=== PATIENT | female | born 1965 | race Caucasian/White ===

== ENCOUNTER 2016-12-05 07:40 | Inpatient (IN) | payer OTHER ==
[2016-11-29 13:08] VITALS: BMI 27.9
--- NOTE | 2016-12-02 10:00 | HP ---
Admitting History and Physical - Primary Care Physician PCP: Sean Valentine - Admission Chief Complaint: Right Occult breast cancer S/P neoadjuvant chemotherapy History of Present Illness: 51 year old perimenapausal female BRCA2 positive S/P neoadjuvant chemotherapy for an occult right breast cancer which presented as a right axillary lymph nodes measuring 1.3 cm and 1.1 cm. US core 06/2016 showed occult primary breast cancer . She had MRI breast which showed bilateral enhancement for which she underwent bilateral core biopsies which were benign. She will undergo Bilateral mastectomies Right sentenel node biopsy and needle localization of axillary clip due to her BRCA positivity. MRI breast 11/26/2016 showed decreased size of right axillary lymph node which was positive for breast cancer 2/1 cm versus 2.5 cm. Left breast negative. History Source: Patient Limitations to Obtaining History: No Limitations - Past Medical History ...LMP Comment: 07/2016 SINCE CHEMO ...: No Dermatology: Yes: Other (seasonal allergies and dermatographism) - Past Surgical History Past Surgical History: Yes: (x3) Additional Past Surgical History: 1991 cone bx for precancerous cervical cells normal papa smear since then - Smoking History Smoking history: Former smoker Have you smoked in the past 12 months: No If you are a former smoker, when did you quit?: - Alcohol/Substance Use Hx Alcohol Use: Yes (SOCIALLY) Home Medications - Allergies Allergies/Adverse Reactions: Allergies Allergy/AdvReac Type Severity Reaction Status Date / Time Sulfa (Sulfonamide Allergy Severe Hives Verified 11/29/16 12:53 Antibiotics) - Home Medications Home Medications: Ambulatory Orders Cetirizine HCl [Zyrtec -] 10 mg PO HS 11/29/16 Fexofenadine HCl [Yohana Allergy] 60 mg PO DAILY 11/29/16 L.acidoph,Paracasei, B.lactis [Probiotic] 1 each PO DAILY 11/29/16 Family Disease History - Family Disease History Family Disease History: CA: Grandparent (pat GM breast ca 75/ mat GM gastric ca 60/ mat GF brain ca 60), Father (Lung ca/ basal cell ca), Sister (melanoma 45/ / sister basal cell ca) Physical Examination Constitutional: Yes: Well Nourished, No Distress Breast(s): Yes: Other (D ptotic cups bilaterally no palpable breast masses bilaterally no palpable adenopathy right or left axilla cerviacla or supraclavicular) Problem List - Problems (1) Breast cancer, right breast Code(s): C50.911 - MALIGNANT NEOPLASM OF UNSP SITE OF RIGHT FEMALE BREAST Qualifiers: Breast location: axillary tail of breast Patient sex: female Assessment/Plan Bilateral total mastectomies, Right sentenel node biopsy Right axillary needle localization of clip and excision , possible axillary node dissection, bilateral reconstruction
[2016-12-05] MEDS ORDERED: ceFAZolin SODIUM 1 GM VIAL ONE (12:32)
[2016-12-05] MEDS ORDERED: GENTAMICIN SO4 80 MG/2 ML VIAL ONE (12:32)
[2016-12-05] MEDS ORDERED: ISOSULFAN BLUE 10 MG/ML VIAL SQ ONE (12:39)
[2016-12-05] MEDS ORDERED: ZOLPIDEM TARTRATE 5 MG TABLET PO PRN (13:11)
[2016-12-05] MEDS ORDERED: ACETAMINOPHEN 325 MG TABLET (FP) PO PRN (13:11)
[2016-12-05 13:48] LABS: BASOPHIL 0.8 % (0-2.0); EOSINOPHIL 1.5 % (0-4.5); MCH 33.5 pg (25.7-33.7); MEAN CELL VOLUME 98.3 fl (80-96); MEAN PLT VOLUME 6.5 fl (7.5-11.1); NEUTROPHILS 64.7 % (42.8-82.8); PLATELET COUNT 257 K/MM3 (134-434); RDW 15.2 % (11.6-15.6); WHITE BLOOD COUNT 6.7 K/mm3 (4.0-10.8)
[2016-12-05] MEDS ORDERED: ONDANSETRON 4 MG/2 ML VIAL IVPB PRN (14:08)
[2016-12-05] MEDS ORDERED: HYDROmorphone HCL CARPU-JECT 1 MG/1 ML DISP.SYRIN IVPUSH PRN (14:20)
[2016-12-05] MEDS ORDERED: ONDANSETRON 4 MG/2 ML VIAL IVPUSH PRN ×2 (14:20→14:22)
[2016-12-05] MEDS ORDERED: PROMETHAZINE HCL 25 MG/1 ML VIAL IVPUSH PRN (14:20)
[2016-12-05] MEDS ORDERED: HYDROmorphone *PCA* 10MG/50ML DISP.SYRIN PCA SCH (14:30)
[2016-12-05] MEDS ORDERED: HYDROmorphone *PCA* 10MG/50ML DISP.SYRIN PCA ONE (18:51)
--- NOTE | 2016-12-05 19:47 | OP ---
DATE OF OPERATION: 12/05/2016 PREOPERATIVE DIAGNOSIS: Occult primary right breast cancer with genetic susceptibility to breast cancer. POSTOPERATIVE DIAGNOSIS: Occult primary right breast cancer with genetic susceptibility to breast cancer. PROCEDURE: Bilateral total mastectomies with right axillary sentinel lymph node biopsy followed by axillary lymph node dissection with bilateral direct implant reconstruction with Alloderm. ANESTHESIA: General endotracheal anesthesia. PRIMARY SURGEON FOR MASTECTOMIES: Chris Patton M.D. POOL INSTALLER: Bea Barry PRIMARY SURGEON FOR THE BILATERAL DIRECT IMPLANT RECONSTRUCTION: Chris Ventura M.D. POOL INSTALLER: NICHOLE Varner COMPLICATIONS: There were no complications. Briefly, the patient is a 51-year-old 4 para 3 perimenopausal white female of [place] and [place] descent who has a family history with her paternal grandmother who had breast cancer and her sister had melanoma, with a maternal grandmother who had gastric cancer. The patient was found to have 2 abnormal lymph nodes seen in the right axilla on routine screening mammography and ultrasound back in May of 2016. Core biopsy showed an occult primary breast cancer. MRI was performed, which did show some right breast 9 o'clock enhancement and left breast upper outer quadrant enhancement but bilateral core biopsies were benign. The cancer biopsy to axillary nodes was ER/GA positive and HER2 positive with a ratio of 2.1. She underwent neoadjuvant chemotherapy with TCHP. Followup MRI after chemotherapy did show some increase in the adenopathy in the right axilla, but it was still seen. She did undergo genetic testing and turned out to be BRCA2 positive with an [id number] mutation. The patient was advised and undergoing bilateral mastectomies and wanted slight breast reduction so the nipples were advised to be taken bilaterally and she was seen by Dr. Ventura preoperatively and opted on bilateral direct implant reconstruction. The patient understood the need for sentinel lymph node biopsy and possible axillary dissection if any of the nodes remained positive. She was brought in for the procedure on December 05, 2016, and first underwent lymphoscintigraphy at [facility] with a periareolar injection of technetium 99 in the nipple areolar complex. In the holding area, site verification was made and informed consent was obtained. She was brought into the operating room and laid on the OR table in the supine position. Venodynes were placed on the lower extremities prior to induction. She received a gram of Ancef prior to incision. 3 mL of Lymphazurin blue were injected intradermally and peritumorally around the nipple areolar complex. Massage was instituted. Both breasts were sterilely prepped and draped in the usual fashion with the right arm prepped in the field. The right side was first approached and sentinel lymph node biopsy was performed with an incision just below the hair bearing of the right axilla. Dissection was directed by the Neoprobe and the blue dye. We did perform a needle localization of the previously biopsied node in the right axilla prior to the surgery and we followed the wire into the lymph node which was also blue and hot. There was actually a grouping of about 4 nodes which were blue in this region, which was removed with a wire localization and specimen radiograph did show removal of the clip in question. Four nodes were each separately , and 2 of the nodes were hot with 1 with a 10-second gamma count of 8526 and the 2nd node with a 10-second gamma count of 9646. The other 2 nodes were blue but not hot. A 5th sentinel node was also found in the right axilla with a 10-second gamma count of 5572. That 5th node was not blue. All 5 nodes were sent to pathology for frozen section, and 1 of the nodes did come back for positive for metastatic cancer, so an axillary lymph node dissection was required. The mastectomy was first performed however in a classical fashion to allow for a reduction pattern breast reconstruction. The entire nipple areolar complex was removed with most of the lower aspect of the skin of the right breast. Skin flaps were raised superiorly to the level of the clavicle, medially to the level of the sternum, laterally to the level of the latissimus, and inferiorly below the level of the inframammary fold. The breast was taken out pectoralis major muscle from medial to lateral and completely removed intact. It was oriented with a long lateral, short superior suture and weighed to allow for appropriate cosmetic result. Skin flaps were trimmed for good cosmetic result. Hemostasis was achieved using electrocautery and the wound was copiously irrigated with warm sterile saline. A separate anterolateral margin was taken with a suture margin and biopsy cavity side sent separately to pathology. A full right axillary lymph node dissection was then undertaken, removing all the level 1, level 2 right axillary nodes using the axillary vein as the superior border of the dissection, the latissimus as the lateral border, and the pectoralis minor as the medial border. The nodes were completely removed from within this triangle. There was some slightly enlarged but not obviously involved nodes removed in the axillary dissection. These were all sent to pathology as right axillary lymph node dissection. The long thoracic and thoracodorsal nerves were identified and spared throughout their entire course. At this point, gloves and instruments were changed and the left breast mastectomy was performed prophylactically similar to the right mastectomy encompassing the entire nipple areolar complex and most of the lower skin of the left breast to allow for a reduction pattern reconstruction with direct implant. Again, skin flaps were raised using the PEAK radiofrequency device superiorly to the level of the clavicle, medially to the level of the sternum, laterally to the level of the latissimus, and inferiorly to the level of the inframammary fold. The breast was taken out off the pectoralis major muscle from medial to lateral completely removed intact. It was oriented with a long lateral, short superior suture and weighed to allow for appropriate cosmetic result. Skin flaps were trimmed for a good cosmetic result. Hemostasis was achieved using electrocautery and the wound was copiously irrigated with warm sterile saline. At this point, Dr. Ventura became the primary surgeon and performed bilateral direct implant reconstruction placing implants in the subpectoral location. Alloderm was sutured into the inferolateral aspect of both pectoralis major muscles to allow for the direct implant reconstruction. Two Calin drains will be placed around each implant, brought through separate stab incisions through lateral skin flap and the right drains will also drain the right axillary lymph node dissection. All wounds will be closed by plastic surgery. The patient will be admitted postoperatively after she has recovered for pain management and wound management. She will be placed on a WOMEN'S BASKETBALL COACH for postoperative pain control. All sponge, needle counts are correct at this point in the case, and estimated blood loss is about 125 mL. We did use the SPY skin perfusion device, which showed good skin perfusion both breast skin flaps. CHRIS PATTON M.D. [id number]
[2016-12-05] MEDS: CEFAZOLIN 1 GM/D5W 50 ML IVPB SCH (20:51)
[2016-12-05] MEDS ORDERED: PATIENT'S OWN MEDICATION (NON-FORMULARY) (Cetirizine Hcl 10 MG) PO SCH (22:00)
[2016-12-06] MEDS: CEFAZOLIN 1 GM/D5W 50 ML IVPB SCH ×5 (02:29→20:48)
--- NOTE | 2016-12-06 07:36 | PN ---
Progress Note, Physician Chief Complaint: Pt s/p bilateral mastectomies with direct implant with alloderm - Current Medication List Current Medications: Active Medications Acetaminophen (Tylenol -) 650 mg PO Q4H PRN PRN Reason: FEVER Heparin Sodium (Porcine) (Heparin -) 5,000 unit SQ BID@0800,2000 [facility] Hydromorphone HCl (Dilaudid Outboard Motor Inspector -) 0 mg ANSWERER ANSWERER BETHANY PRN Reason: Protocol Stop: 12/12/16 14:23 Cefazolin Sodium (Ancef 1 Gm Premixed Ivpb -) 50 mls @ 100 mls/hr IVPB Q6H-IV [facility]ANY Stop: 12/12/16 14:59 Last Admin: 12/06/16 02:29 Dose: 100 mls/hr Dextrose/Sodium Chloride (D5-1/2ns -) 1,000 mls @ 100 mls/hr IV ASDIR B[facility]ANY Loratadine (Claritin -) 10 mg PO DAILY [facility] Ondansetron HCl (Zofran Injection) 4 mg IVPB Q6H PRN PRN Reason: NAUSEA AND/OR VOMITING Zolpidem Tartrate (Ambien -) 5 mg PO HS PRN PRN Reason: Insomnia - Objective Vital Signs: Vital Signs Temperature 98.5 F 12/06/16 06:00 Pulse Rate 85 12/06/16 06:00 Respiratory Rate 18 12/06/16 06:00 Blood Pressure 104/63 12/06/16 06:00 O2 Sat by Pulse Oximetry (%) 100 12/06/16 06:00 Constitutional: Yes: Well Nourished, No Distress, Calm Eyes: Yes: WNL HENT: Yes: WNL Neck: Yes: WNL Cardiovascular: Yes: WNL Respiratory: Yes: WNL Gastrointestinal: Yes: WNL ...Rectal Exam: Yes: Deferred Genitourinary: Yes: WNL Breast(s): Yes: Other (Bilateral breasts with appropriate swelling and ecchymosis. Incisions c/d/i. no s/s of infections YVONNE drains holding suction.) Integumentary: Yes: WNL Wound/Incision: Yes: Clean/Dry, Steri Strips, Dressing Dry and Intact Neurological: Yes: WNL ...Motor Strength: WNL Psychiatric: Yes: WNL Labs: CBC, BMP 12/05/16 13:25 Problem List - Problems (1) Breast cancer, right breast Code(s): C50.911 - MALIGNANT NEOPLASM OF UNSP SITE OF RIGHT FEMALE BREAST Qualifiers: Breast location: axillary tail of breast Patient sex: female Assessment/Plan cont with pain management cont with anitcoagulation cont with oob cont with yvonne drains possible d/c ulysses follow up one week.
[2016-12-06] MEDS: DEXTROSE 5%-0.45% SALINE 1,000 ML IV SCH ×2 (08:08→15:16)
[2016-12-06 08:31] LABS: MCHC 33.3 g/dl (32.0-36.0); MEAN CELL VOLUME 99.1 fl (80-96); MEAN PLT VOLUME 7.3 fl (7.5-11.1); PLATELET COUNT 272 K/MM3 (134-434); RDW 15.3 % (11.6-15.6); WHITE BLOOD COUNT 10.3 K/mm3 (4.0-10.8)
--- NOTE | 2016-12-06 09:27 | PN ---
Progress Note, Physician Chief Complaint: Right occult breast cancer BRCA positive S/P bilateral total mastectomies right sentenel node biopsy with positive frozen section , axillary node dissection,implant alloderm reconstruction History of Present Illness: patient is OOB , pain managed with MICA PLATE LAYER no nausea, eating - Current Medication List Current Medications: Active Medications Acetaminophen (Tylenol -) 650 mg PO Q4H PRN PRN Reason: FEVER Heparin Sodium (Porcine) (Heparin -) 5,000 unit SQ BID@0800,2000 [facility] Hydromorphone HCl (Dilaudid Telegraph Service Clerk -) 0 mg MICA PLATE LAYER MICA PLATE LAYER BETHANY PRN Reason: Protocol Stop: 12/12/16 14:23 Last Admin: 12/06/16 08:08 Dose: Not Given Cefazolin Sodium (Ancef 1 Gm Premixed Ivpb -) 50 mls @ 100 mls/hr IVPB Q6H-IV BETHANY Stop: 12/12/16 14:59 Last Admin: 12/06/16 08:09 Dose: Not Given Dextrose/Sodium Chloride (D5-1/2ns -) 1,000 mls @ 100 mls/hr IV ASDIR BETHANY Last Admin: 12/06/16 08:08 Dose: Not Given Loratadine (Claritin -) 10 mg PO DAILY [facility] Ondansetron HCl (Zofran Injection) 4 mg IVPB Q6H PRN PRN Reason: NAUSEA AND/OR VOMITING Zolpidem Tartrate (Ambien -) 5 mg PO HS PRN PRN Reason: Insomnia - Objective Vital Signs: Vital Signs Temperature 98.5 F 12/06/16 06:00 Pulse Rate 85 12/06/16 06:00 Respiratory Rate 18 12/06/16 08:01 Blood Pressure 104/63 12/06/16 06:00 O2 Sat by Pulse Oximetry (%) 100 12/06/16 08:01 Constitutional: Yes: Well Nourished, No Distress Breast(s): Yes: Other (Bilateral flaps viable no echymosis incision intact steristrips in place yvonne drains functioning) Labs: CBC, BMP 12/06/16 07:26 Problem List - Problems (1) Breast cancer, right breast Code(s): C50.911 - MALIGNANT NEOPLASM OF UNSP SITE OF RIGHT FEMALE BREAST Qualifiers: Breast location: axillary tail of breast Patient sex: female Assessment/Plan continue IV antibiotics Discharge MICA PLATE LAYER and start percocet after lunch colace for constipation discharge patient home tomorrow
[2016-12-06] MEDS: HEPARIN NA (PORCINE) 5,000 UNITS/ML 1ML VIAL SQ SCH ×2 (09:31→20:48)
--- NOTE | 2016-12-06 09:48 | DS ---
Physical Examination Vital Signs: Vital Signs Temperature 98.5 F 12/06/16 06:00 Pulse Rate 85 12/06/16 06:00 Respiratory Rate 18 12/06/16 08:01 Blood Pressure 104/63 12/06/16 06:00 O2 Sat by Pulse Oximetry (%) 100 12/06/16 08:01 Constitutional: Yes: No Distress Breast(s): Yes: Other (Bilateral flaps viable incision intact sterisstrips in place ,no signs of infectionJP drains functioning) Labs: CBC, BMP 12/06/16 07:26 Discharge Summary Reason For Visit: BREAST CANCER Current Active Problems Breast cancer, right breast (Acute) Procedures: Principal: Bilateral total mastectomies right sentenel node biopsy and excision of right axillary node with clip , axillary node dissection, impant and alloderm reconstruction Hospital Course: Patient had repeat of Platelets prior to surgery and they were within normal imits. She underwent bilateral total mastectomies with right senetenl node biopsy positive frozen section and excision of right sentenl node with clip , axillary node dissection implant and alloderm with out difficulty, using FANCY WIRE DRAWER and percocet to manage pain. Condition: Good - Instructions Diet, Activity, Other Instructions: Post Operative Instructions - [facility] We hope your recovery will be uneventful. For those of you who have been given general anesthesia, there is a possibility you might have some lightheadedness and possibly nausea. It is important that each patient, especially those who have had general anesthesia, follow these instructions, please: 1. Do NOT operate a motor vehicle for 24 hours. 2. Do NOT drink any alcoholic beverages for 24 hours. 3. Do NOT take any sedatives, narcotics, or tranquilizers for 24 hours unless specifically ordered by your surgeon. 4. Do NOT undertake any strenuous exercise or outside activity for 24 hours unless specifically permitted by your surgeon. 5. Eat light foods that are easy to digest. If you have any problems with nausea and vomiting, lie down and rest. If it continues, call your surgeon. 6. Call your surgeon AT ONCE if you have problems with: a. Bleeding b. Urinating c. Excessive pain or drainage d. Numbness If any problems occur, call your physician first. If you cannot reach him/her, call the Ambulatory Surgery Unit at [phone], or the Emergency Room at [phone]. Follow up with Drs. Valentine / Matt in 7 days. Medication: Vicodin E-S OR Percocet 1-2 tablets every 4-6 hrs as needed for 5-7 days. Wound Care: Keep wound dry and clean for 48 hours. You may remove the dressing after 48 hours and may shower. Keep steri-strips in place until follow-up appointment No heavy lifting or strenuous activities. BREAST SURGERY INSTRUCTIONS Beto Valentine M.D., FACS Sean Valentine M.D., FACS Jayda Gutierrez M.D., FACS 1. Please call the office at to make a follow up appointment with your surgeon. This number can be also used for any urgent issues you may have. 2. Call us immediately if any of the following occur: *Bleeding from the incision or drain site (a small amount is normal) *Fever or chills *Redness and worsening tenderness around the surgical site *Drainage of pus or fluid from the incision or drain site 3. You may change the surgical dressing two (2) days after your surgery, and may shower then. If you have drains, you may shower after they have been removed, until then take a sponge bath. 4. It is normal for there to be some bruising and tenderness around the surgical site, and the breast may also be firm in this area. 5. Please wear a comfortable bra (sports or surgical bra) all day and all night until your first follow-up visit with your surgeon. 6. The pain medicine you have been prescribed may make you constipated; make sure you drink plenty of water. You may use an over the counter laxative if needed. 7. You may resume your normal diet after surgery, although you may want to avoid rich foods for the first twenty-four (24) hours after surgery. Alcoholic drinks should be avoided while taking the prescribed pain medicine. 8. You may resume normal activities as long as there is no discomfort, but do not do upper body exercises until after your follow-up appointment. Do not lift anything heavier than a large phone book. You may resume driving once you have stopped taking the prescribed pain medicine and feel comfortable doing arm movements. WEAR BRA no shower. empty and record PRABHU output twice daily Referrals: Sean Valentine MD [Staff Physician] - Disposition: HOME - Home Medications Comprehensive Discharge Medication List: Ambulatory Orders Cetirizine HCl [Zyrtec -] 10 mg PO HS 11/29/16 Fexofenadine HCl [Yohana Allergy] 60 mg PO DAILY 11/29/16 L.acidoph,Paracasei, B.lactis [Probiotic] 1 each PO DAILY 11/29/16 Cefadroxil 500 mg PO BID #20 capsule 12/06/16 Oxycodone HCl/Acetaminophen [Percocet 5-325 mg Tablet] 1 - 2 tab PO Q6H PRN #30 tab MDD 6 12/06/16
[2016-12-06] MEDS ORDERED: DOCUSATE SODIUM 100 MG CAPSULE (FP) PO PRN (09:58)
[2016-12-06] MEDS ORDERED: LORATADINE 10 MG TABLET PO SCH (10:00)
[2016-12-06] MEDS ORDERED: [UNRECOGNIZED DRUG - REMARK] PO SCH (10:00)
--- NOTE | 2016-12-06 10:48 | PN ---
Progress Note (short form) - Note Progress Note: Patient doing well POD#1, s/p GETA. Currently using hydromorphone PERSONNEL CLERKS SUPERVISOR with pain score of 3/10. Patient is satisfied with this and will continue to use PERSONNEL CLERKS SUPERVISOR. She is tolerating PO and ambulating. Continue current care.
[2016-12-06] MEDS ORDERED: oxyCODONE HCL 5 MG TABLET PO PRN (11:01)
[2016-12-06] MEDS: oxyCODONE HCL 5 MG TABLET PO PRN (18:12)
[2016-12-06] MEDS ORDERED: [UNRECOGNIZED DRUG - REMARK] PO SCH (22:00)
[2016-12-07] MEDS: oxyCODONE HCL 5 MG TABLET PO PRN ×2 (02:48→11:50)
[2016-12-07] MEDS: CEFAZOLIN 1 GM/D5W 50 ML IVPB SCH ×2 (03:30→09:35)
[2016-12-07 06:34] VITALS: BP 98/53; PULSE 96; TEMP 98.6
[2016-12-07] MEDS: HEPARIN NA (PORCINE) 5,000 UNITS/ML 1ML VIAL SQ SCH (08:05)
--- NOTE | 2016-12-09 19:17 | OP ---
DATE OF OPERATION: 12/05/2016 SURGEON: Chris Ventura M.D. NATURAL RESOURCES MANAGER SURGEON: Bea Tee INDICATION: This is a combined dictation with Chris Valentine M.D., for bilateral implant and Alloderm reconstruction after bilateral mastectomy. Dr. Valentine will dictate his portion of the procedure under separate cover. The standard dictation applies for breast reconstruction with this procedure, with the SPY intraoperative angiogram. Patient had breast tissue removed on the left breast of 1330 g, and the right breast tissue removed 1203 g. She had Alloderm tissue matrix contour large perforated material placed bilaterally, and she had implants placed bilaterally of Natrelle Inspira Cohesive breast implant SCF style 520 mL volume. She had SPY intraoperative angiograms bilaterally which showed good blood flow, and she tolerated the procedure well. PREOPERATIVE DIAGNOSES: 1. Bilateral acquired chest wall deformity status post bilateral mastectomy (611.89). 2. Personal history of genetic carcinoma. POSTOPERATIVE DIAGNOSES: 1. Bilateral acquired chest wall deformity status post bilateral mastectomy (611.89). 2. Personal history of genetic carcinoma. PROCEDURE: 1. Right immediate breast reconstruction utilizing immediate insertion of silicone breast implant and AlloDerm reconstruction. 2. Left immediate breast reconstruction utilizing immediate insertion of silicone breast implant and AlloDerm reconstruction. 3. Intravenous injection of indocyanine green dye and intraoperative diagnostic evaluation of non-coronary intraoperative fluorescein vascular angiography x 2. ANESTHESIA: GENERAL OPERATIVE PROCEDURE IN DETAIL: The patient was taken to the operating room. After induction of general anesthesia in the supine position, both arms were extended and padded. Venodyne boots were placed. The entire chest wall was painted with ChloraPrep solution over its entire extent, and sterile drapes were placed in the usual fashion. The markings, which had been made in the standing position preoperatively, were re-outlined with the patient's knowledge. Time-out procedure was performed. Attention was turned by Dr. Valentine to the mastectomies. Bilateral inframammary incisions were made and Dr. Valentine performed mastectomies. This will be dictated under separate cover. Upon completion of the mastectomies, the wounds were copiously irrigated and attention was turned to the right breast. A subpectoral dissection was begun on the right breast, superiorly from the second rib, medially to the sternal fibers, and down to the inframammary fold, elevating the pectoralis major muscle from its insertion. At this point, an 8.0 x 16.0 sheet of AlloDerm was brought into the field and sutured superiorly along the pectoralis major muscle after rehydration. This was carried along the lateral mammary fold and down the side of the breast reconstruction. At this point, a Natrelle Inspira Cohesive breast implant SCF style 520 mL volume implant was chosen. The left breast tissue removed was 1330 gm, and the right breast approximately 1203 gm. This implant was placed and then sutured with 3-0 Vicryl suture continued along the inframammary fold, completely covering the implant itself. The exact same procedure was carried out symmetrically on the opposite breast, also placing a Natrelle Inspira Cohesive breast implant SCF style 520 mL volume implant in the same subpectoral pocket. Good symmetry was seen in the sitting position. After the implants were in place, the patient was injected with 10 mL of Isocyanide green dye and the Spy imaging system was brought into the field. The skin flowed to the right and left breasts and the nipple areolar complex, and the entire skin flaps were evaluated and seen to be viable with good blood flow. Two Juan Manuel-Lam drains were brought out through separate stab wounds laterally. The Smart Infuser pump catheter was inserted medially and into the subpectoral position. Both wounds were closed symmetrically using 3-0 PDS suture on the deep tissue, 3-0 in a deep dermal fashion, and 4-0 in a subcuticular fashion. Both wounds were dressed sterilely with Mastisol and Steri-Strips with a surgical bra and a compression strap. The patient tolerated the procedure well. She was awakened, extubated and transferred to the recovery room in satisfactory condition. The educational program assistant was present during the entire portion of the operation and closure. CHRIS VENTURA M.D. [id number]
--- NOTE | 2016-12-13 13:44 | PATH ---
Surgical Pathology Report Patient Name: KRISTIAN CONNELLY Med. Rec. #: [id number] /Age/Gender: 1965 (Age: 51) / F Account: [id number] Location: [facility] MED-SURG Taken: 12/05/2016 Received: 12/05/2016 Reported: 12/13/2016 Physicians: Sean Valentine M.D. Specimen(s) Received A: RIGHT SENTINEL NODE #1 (FS) B: RIGHT SENTINEL NODE #2 (FS) C: RIGHT SENTINEL NODE #3 (FS) D: RIGHT SENTINEL NODE #4 (FS) E: RIGHT SENTINEL NODE #5 (FS) F: RIGHT BREAST G: RIGHT AXILLARY LYMPH NODE DISSECTION H: RIGHT BREAST ANTERIOR LATERAL MARGIN I: LEFT BREAST Clinical History Right breast cancer BRCA2+ Intraoperative Consult Diagnosis A. Right sentinel node #1, touch prep: Benign lymph node. B. Right sentinel node #2, touch prep and frozen section: Positive for metastatic carcinoma. Biopsy clipped grossly identified. C. Right sentinel node #3, touch prep: Benign lymph node. D. Right sentinel node #4, touch prep: Benign lymph node. E. Right sentinel node #5, touch prep: Benign lymph node. Pernell Ba M.D., 12/05/2016 Final Diagnosis A. SENTINEL NODE, RIGHT, #1, EXCISION (FS): ONE LYMPH NODE, NEGATIVE FOR METASTATIC CARCINOMA (0/1). B. SENTINEL NODE, RIGHT, #2, EXCISION (FS): METASTATIC CARCINOMA INVOLVING ONE OF ONE LYMPH NODE (1/1). THE FOCUS OF METASTATIC CARCINOMA MEASURES 6 MM IN GREATEST DIMENSION (MACROMETASTASIS). FOCAL EXTRACAPSULAR EXTENSION IS IDENTIFIED. PRIOR BIOPSY CLIP IS IDENTIFIED. C. SENTINEL NODE, RIGHT, #3, EXCISION (FS): ONE LYMPH NODE, NEGATIVE FOR METASTATIC CARCINOMA (0/1). D. SENTINEL NODE, RIGHT, #4, EXCISION (FS): ONE LYMPH NODE, NEGATIVE FOR METASTATIC CARCINOMA (0/1). E. SENTINEL NODE, RIGHT, #5, EXCISION (FS): ONE LYMPH NODE, NEGATIVE FOR METASTATIC CARCINOMA (0/1). F. 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 (SEE NOTE) THE FOCUS OF MICROINVASIVE CARCINOMA AND DCIS ARE PRESENT IN THE UPPER OUTER QUADRANT (UOQ) IN TISSUE SURROUNDING THE PRIOR BIOPSY SITE/BIOPSY CLIP. SURGICAL MARGINS ARE UNINVOLVED BY MICROINVASIVE CARCINOMA AND DCIS. NO LYMPHOVASCULAR INVASION IS IDENTIFIED. MULTIPLE SCATTERED FOCI OF LOBULAR CARCINOMA IN SITU (LCIS), CLASSICAL TYPE. LCIS INVOLVES A LARGE LACTIFEROUS DUCT OF NIPPLE. SKIN IS PRESENT AND IS UNINVOLVED BY CARCINOMA. REMAINING BREAST TISSUE SHOWS FOCAL ATYPICAL DUCTAL HYPERPLASIA (ADH), COLUMNAR CELL CHANGES, SCLEROSING ADENOSIS AND FIBROCYSTIC CHANGES. PATHOLOGIC STAGE (p TNM): pT1mic pN1a. SEE ALSO INVASIVE CARCINOMA CASE SUMMARY BELOW. Note: The focus of microinvasive carcinoma is positive for cytokeratin AE1/3 as well as E-Cadherin, which supports ductal phenotype. Myoepithelial immunohistochemical markers (SMM-HCC & p63) demonstrate the absence of myoepithelial cells in the focus of microinvasive carcinoma. G. AXILLARY LYMPH NODES, RIGHT, DISSECTION: FOURTEEN BENIGN LYMPH NODES (0/14). H. BREAST, RIGHT, ANTERIOR LATERAL MARGIN, EXCISION: BENIGN FIBROADIPOSE TISSUE. I. BREAST, LEFT, TOTAL MASTECTOMY: MULTIPLE SCATTERED FOCI OF LOBULAR CARCINOMA IN SITU (LCIS), CLASSICAL TYPE AND FOCAL ATYPICAL DUCTAL HYPERPLASIA (ADH). REMAINING BREAST TISSUE SHOWS FIBROCYSTIC CHANGES WITH FEW CYSTS SHOWING CALCIFIED CONTENTS, SCLEROSING ADENOSIS AND COLUMNAR CELL CHANGES. PRIOR BIOPSY SITE CHANGES ARE IDENTIFIED. NIPPLE AND SKIN WITH NO PATHOLOGIC FINDINGS. Comments Breast Invasive Carcinoma: Surgical Pathology Cancer Case Summary Based on AJCC/UICC TNM, 7th edition Procedure _X_Total mastectomy (including nipple and skin) Lymph Node Sampling _X_Sentinel lymph node(s) _X_Axillary dissection nodes) Specimen Laterality _X_ Right Tumor Size: Size of Largest Invasive Carcinoma _X_ Microinvasion only (= 1 mm) Tumor Focality _X_ Single focus of invasive carcinoma Macroscopic and Microscopic Extent of Tumor Skin _X_ Invasive carcinoma does not invade into the dermis or epidermis Nipple _X_ DCIS does not involve the nipple epidermis Ductal Carcinoma In Situ (DCIS) _X_ DCIS is present (focal) Histologic Type of Invasive Carcinoma : _X_ Invasive carcinoma of no special type (ductal, not otherwise specified) Histologic Grade: (Freedom Histologic Score) Tubular Differentiation _X_ Only microinvasion present (not graded) Nuclear Pleomorphism _X_ Only microinvasion present (not graded) Mitotic Rate _X_ Only microinvasion present (not graded) Overall Grade _X_ Only microinvasion present (not graded) Margins _X_ Margins uninvolved by invasive carcinoma _X_ Cannot be determined: widely clear (> 1 cm) _X_ Margins uninvolved by DCIS _X_ Cannot be determined: widely clear (> 1 cm) Lymph-Vascular Invasion _X_ Not identified Lymph Nodes Total number of lymph nodes examined (sentinel and nonsentinel): 19 Number of sentinel lymph nodes examined: 5 Number of lymph nodes with macrometastases ( > 2 mm): 1 Number of lymph nodes with micrometastases (>0.2 mm to 2 mm and/or >200cells):0 Number of lymph nodes with isolated tumor cells (=0.2 mm and =200 cells): 0 Size of largest metastatic deposit: 6 mm Extranodal Extension _X_ Present (focal) Pathologic Staging (pTNM) Primary Tumor (Invasive Carcinoma): pT1mic Regional Lymph Nodes (pN): pN1a Biomarker Studies Results of ER and PA studies performed on this specimen (right sentinel lymph node block # B1) at [facility] are as follows: ER (clone [id number] mouse monoclonal antibody by [employer]): >90% nuclear staining with strong intensity (Positive). PA (clone16 mouse monoclonal antibody by [employer]): ~40% nuclear staining with moderate to strong intensity (Positive). Results of Her2 (IHC) studies performed on this specimen (right sentinel lymph node block # B1) at [place], [place] ( [id number]) are as follows: Her2 IHC (EP3 from [employer], formerly known as [id number], using Lopez Polymer Refine detection kit): 0 (Negative). Positive and negative controls (internal if applicable) show appropriate results. Formalin fixation and cold ischemic times are within current ASCO/CAP recommendations for ER, PA and Her2 testing. Electronically Signed Verenice Cazares M.D. Gross Description A. Received fresh for intraoperative consultation labeled "right sentinel node #1" is a 1.5 x 1.5 x 0.9 cm portion of fatty tissue containing a lymph node. Cut surface reveals no focal lesions. Touch prep is prepared. The specimen is totally submitted in 2 cassettes. B. Received fresh for intraoperative consultation labeled "right sentinel node #2" is a 2.0 x 1.8 x 0.6 cm portion of fatty tissue. Cut surface reveals 2 possible lymph nodes, one of which shows a metallic clip consistent with a biopsy site marker. A touch prep is prepared. A portion of each node is frozen the frozen remainder is submitted in cassette B1. All the remaining tissue is submitted in cassette B2 for permanent section. C. Received fresh for intraoperative consultation labeled "right sentinel node #3" is a 1.8 x 1.3 x 0.6 cm portion of fatty tissue containing a possible lymph node. No focal lesions are identified. Touch prep is prepared. The specimen is sectioned and totally submitted in one cassette. D. Received fresh for intraoperative consultation labeled "right sentinel node #4" is a 2.4 x 1.8 x 0.8 cm portion of fatty tissue. Cut surface reveals no focal lesions. Touch prep is prepared. The specimen is sectioned and totally submitted in 2 cassettes. E. Received fresh for intraoperative consultation labeled "right sentinel node #5" is a 1.0 x 0.8 x 0.5 cm portion of fatty tissue containing a lymph node. Cut surface reveals a uniform dark singletary interior with no focal lesions identified. Touch prep is prepared. The specimen is sectioned and totally submitted in one cassette. F. Received in formalin, labeled "right breast," is a 1243 gram, 19.0 x 18.0 x 8.4 cm. right mastectomy specimen with a short suture marking the superior aspect and a long suture marking the lateral aspect of the specimen, per the surgeon. The anterior surface displays a 19.0 x 15.5 cm singletary, elliptical portion of skin with a 1.4 cm in diameter nipple. The deep margin is inked black and the anterior soft tissue margin is inked blue. The specimen is serially sectioned from lateral to medial. Sectioning reveals a biopsy clip in the upper outer quadrant (UOQ). There is a 3.5 x 2.2 x 2.0 cm focus of firm fibrotic tissue in the upper outer quadrant, separate from the biopsy clip. The remaining breast parenchyma displays multifocal white fibrous tissue. No discrete mass is identified. [facility] sections are submitted in 31 cassettes as follows: 1-serially sectioned nipple; 2-subareolar shave; 3-4-UOQ previous biopsy clip; 5-11-UOQ focus of firm fibrotic tissue; 05-73-njzogruruu UOQ tissue; 17-18-lower outer quadrant; 19-21-upper inner quadrant; 22-24-lower inner quadrant; 25-anterior soft tissue margin; 26-skin; 27-deep margin; 28-31- additional agency service representative sections. G. Received in formalin labeled "right axillary lymph node dissection," is 11.0 x 7.5 x 3.2 cm aggregate of yellow, lobulated adipose tissue. Sectioning reveals multiple singletary, irregular lymph nodes ranging from 0.4-1.6 cm in greatest dimension. The lymph nodes are entirely submitted in 12 cassettes as follows: 9-0-eldjvfhk whole lymph nodes each; 3-11-one whole bisected lymph node each; 12-one whole trisected lymph node. H. Received in formalin labeled "right breast anterior lateral margin," is a 10.0 x 7.3 x 1.9 cm irregular portion of fibroadipose tissue with a suture marking the biopsy cavity side, per the surgeon. The new margin is inked black and the specimen is serially sectioned. No masses or areas of hemorrhage are identified. [facility] sections are submitted in 8 cassettes. I.Received in formalin, labeled "left breast," is a 1231 gram, 23.0 x 18.0 x 7.5 cm. left mastectomy specimen with a short suture marking the superior aspect and a long suture marking the lateral aspect of the specimen, per the surgeon. The anterior surface displays a 23.0 x 13.5 cm singletary, elliptical portion of skin with a 1.3 cm diameter nipple. The deep margin is inked black and the anterior soft tissue margin is inked blue. The specimen is serially sectioned from medial to lateral. Sectioning reveals a focus of hemorrhage in the upper outer quadrant (UOQ), consistent with a previous biopsy site. There is a 4.5 x 2.6 x 2.5 cm focus of firm fibrotic tissue in the upper outer quadrant, separate from the previous biopsy site. The remaining breast parenchyma displays multifocal white fibrous tissue. No discrete mass is identified. [facility] [employer] sections are submitted in 33 cassettes as follows: 1-serially sectioned nipple; 2-subareolar shave; 3-4-UOQ previous biopsy site; 5-10-UOQ focus of firm fibrotic tissue; 30-53-ifyvfzjdkk UOQ tissue; 14-15-lower outer quadrant; 16-18-upper inner quadrant; 19-20-lower inner quadrant; 21-anterior soft tissue margin; 22-skin; 23-deep margin; 24-33- additional agency service representative sections. Time to formalin fixation: within 1 hour Total formalin fixation time: Approximately 26 hours [facility]/12/05/2016 [facility]/12/05/2016
== END 2016-12-07 11:45 | disposition home or self-care (01) | DRG 580 ==
LOC: FM/S 07:40
PROVIDERS: ADMIT Surgery Surgical Oncology; ATTEND Surgery Surgical Oncology
PROC: 0HTV0ZZ Resection of Bilateral Breast, Open Approach (ICD-10-PCS; principal; 2016-12-05 14:22)
PROC: 07B50ZZ Excision of Right Axillary Lymphatic, Open Approach (ICD-10-PCS; 2016-12-05 14:22)
PROC: 0HRV0JZ Replacement of Bilateral Breast with Synthetic Substitute, Open Approach (ICD-10-PCS; 2016-12-05 14:22)
DX: C50.911 Malignant neoplasm of unspecified site of right female breast (principal); C77.3 Secondary and unspecified malignant neoplasm of axilla and upper limb lymph nodes; Z15.01 Genetic susceptibility to malignant neoplasm of breast
CPT/HCPCS: 19281; 36415; 76641-TC-50; 78195-TC; 84703; 85025; 85027; 86850; 86900; 86901; 88307-TC; 88331-TC; 88341-TC; 94010; 94760; A9541; J1644

== ENCOUNTER 2017-01-01 16:55 | Inpatient (IN) | payer OTHER ==
--- NOTE | 2017-01-01 17:42 | HP ---
Admitting History and Physical - Primary Care Physician PCP: eSan Valentine - Admission Chief Complaint: Right Breast cellutitis History of Present Illness: The patient is a perimenopausal white female with [place] and [place] descent with a family history of breast cancer in her PGM. Her sister had melanoma at age 45 and her MGM had gastric cancer in her 60's. The patient was found to have 2 abnormal lymph nodes on screening mammography and ultrasound in May 2016. Ultrasound guided core biopsies showed an occult primary breast cancer in a right axillary lymph node on June 19, 2016. The cancer was found to be ER+/MA+ and HER2+ by FISH with a ration of 2.1 and a total count of 3.3. She also genetic tested positive for a BRCA2 mutation with a [id number] mutation. She underwent neoadjuvant CTX with TCHP and then underwent bilateral total mastectomies with direct to implant reconstructions and she had a positive sentinel lymph node biopsy and required an axillary dissection with a total of 2/20+ LN's. A small microinvasive 1mm cancer was found on the final pathology in the UOQ of the right breast. She was doing well until she developed some redness in her inframammary incision about 1 week ago. She has improved with po antibiotics but today she noticed worsening drainage and now low grade fevers. It was determined to admit her for IV antibiotics. History Source: Patient Limitations to Obtaining History: No Limitations - Past Medical History OVERCOILER: No: Alzheimer's, CVA, Dementia, Migraine, Multiple Sclerosis, Peripheral Neuropathy, Parkinson's, Seizure, Syncope, TIA, Vertigo, Other Cardiovascular: No: AFIB, Aneurysm, Aortic Insufficiency, Aortic Stenosis, CAD, CHF, Deep Vein Thrombosis, HTN, Hyperlipdemia, ND, Mitral Insufficiency, Mitral Stenosis, Murmur, Pulmonary Hypertension, Other Pulmonary: No: Asthma, Bronchitis, Cancer, COPD, O2 Dependent, Pneumonia, Previously Intubated, Pulmonary Embolus, Pulmonary Fibrosis, Sleep Apnea, Other Gastrointestinal: No: Ascites, Cancer, Constipation, Crohn's Disease, Diverticulitis, Diverticulosis, Esophageal Varices, Gastritis, GERD, GI Bleed, Hemorrhoids, Hiatal Hernia, Inflamatory Bowel Disease, Irritable Bowel Disease, Pancreatitis, Peptic Ulcer Disease, Ulcerative Colitis, Other Hepatobiliary: No: Cirrhosis, Cholelithiasis, Cholecystitis, Choledocholithiasis , Hepatitis A, Hepatitis B, Hepatitis C, Other Renal/: No: Renal Failure, Renal Inusuff, BPH, Cancer, Hematuria, Hemodialysis , Neurogenic Bladder, Renal Calculi, UTI, Other Heme/Onc: No: Anemia, B12 Deficiency, Bleeding Disorder, Cancer, Current Chemotherapy, Current Radiation Therapy, Hemochromatosis, Hypercoaguable State, Myeloproliferative Synd, Sickle Cell Disease, Sickle Cell Trait, Thrombocytopenia, Other Infectious Disease: No: AIDS, C-Diff, Herpes Zoster, HIV, MRSA, STD's, Tuberculosis, VREF, Other Psych: No: Addictions, Anxiety, Bipolar, Depression, Panic, Psychosis, Schizophrenia, Other Musculoskeletal: No: Bursitis, Chronic low back pain, Hemiparesis, Hemiplegia, Osteoarthritis, Paraplegia, Other Rheumatology: No: Fibromyalgia, Gout, Lupus, Rheumatoid Arthritis, Sarcoidosis, Vasculitis, Other Endocrine: No: Greenbrier's Disease, [place]'s Disease, Diabetes Insipidus, Diabetes Mellitus, Hyperparathyroidism, Hyperthyroidism, Hypothyroidism, Osteopenia, SIADH, Other Dermatology: Yes: Other (seasonal allergies and dermatographism). No: Basal Cell, Cellulitis, Eczema, Melanoma, Psoriasis, Squamous Cell - Past Surgical History Past Surgical History: Yes: Additional Past Surgical History: c-sections x 3 - Smoking History Smoking history: Former smoker Have you smoked in the past 12 months: No If you are a former smoker, when did you quit?: - Alcohol/Substance Use Hx Alcohol Use: Yes (SOCIALLY) Home Medications - Allergies Allergies/Adverse Reactions: Allergies Allergy/AdvReac Type Severity Reaction Status Date / Time Sulfa (Sulfonamide Allergy Severe Hives Verified 11/29/16 12:53 Antibiotics) - Home Medications Home Medications: Ambulatory Orders Cetirizine HCl [Zyrtec -] 10 mg PO HS 11/29/16 Fexofenadine HCl [Yohana Allergy] 60 mg PO DAILY 11/29/16 L.acidoph,Paracasei, B.lactis [Probiotic] 1 each PO DAILY 11/29/16 Cefadroxil 500 mg PO BID #20 capsule 12/06/16 Oxycodone HCl/Acetaminophen [Percocet 5-325 mg Tablet] 1 - 2 tab PO Q6H PRN #30 tab MDD 6 12/06/16 Family Disease History - Family Disease History Family Disease History: CA: Grandparent (pat GM breast ca 75/ mat GM gastric ca 60/ mat GF brain ca 60), Father (Lung ca/ basal cell ca), Sister (melanoma 45/ / sister basal cell ca) Review of Systems - Review of Systems Constitutional: reports: Fever, Malaise Eyes: reports: No Symptoms HENT: reports: No Symptoms Neck: reports: No Symptoms Cardiovascular: reports: No Symptoms Respiratory: reports: No Symptoms Gastrointestinal: reports: No Symptoms Genitourinary: reports: No Symptoms Breasts: reports: Other (redness and drainage from inframammary region of right breast) Musculoskeletal: reports: No Symptoms Integumentary: reports: No Symptoms Neurological: reports: No Symptoms Endocrine: reports: No Symptoms Hematology/Lymphatic: reports: No Symptoms Psychiatric: reports: No Symptoms Pain Intensity: 1 Physical Examination Constitutional: Yes: Well Nourished, No Distress, Calm Eyes: Yes: WNL HENT: Yes: Atraumatic, Normocephalic Neck: Yes: WNL Cardiovascular: Yes: Regular Rate and Rhythm Respiratory: Yes: Regular, CTA Bilaterally Gastrointestinal: Yes: Normal Bowel Sounds, Soft ...Rectal Exam: Yes: Deferred Renal/: Yes: WNL Breast(s): Yes: Other (Right inframammary wound with clear yellow drainage but stable erythema.) Musculoskeletal: Yes: WNL Extremities: Yes: WNL Integumentary: Yes: Erythema, Other (Right inframammary incision with some yellow clear drainage and erythema. No purulence) Neurological: Yes: WNL Psychiatric: Yes: WNL Problem List - Problems (1) Cellulitis of right breast Assessment/Plan: The patient is to be admitted for right breast cellulitis to salvage the implant and prevent infection. Will place on IV vanco and cipro. After infection resolves will need to be referred to radiation. Code(s): N61.0 - MASTITIS WITHOUT ABSCESS Assessment/Plan Place on IV vancomycin and Cipro IV. Will get ID consult while in hospital. Regular diet and ambulate without assistance. Evaluate by plastics for possible implant washout in OR.
[2017-01-01] MEDS ORDERED: VANCOMYCIN 1,250 MG in DEXTROSE 5%-WATER - 250 ML IVPB SCH ×2 (18:00→22:00)
[2017-01-01] MEDS ORDERED: DEXTROSE 5%-0.45% SALINE 1,000 ML IV SCH (18:00)
[2017-01-01] MEDS ORDERED: OXYCODONE/APAP 5/325MG COMBO TABLET PO PRN (18:07)
[2017-01-01 20:50] LABS: MCH 31.3 pg (25.7-33.7); MCHC 33.8 g/dl (32.0-36.0); MEAN CELL VOLUME 92.7 fl (80-96); PLATELET COUNT 177 K/MM3 (134-434); RDW 13.5 % (11.6-15.6); WHITE BLOOD COUNT 8.9 K/mm3 (4.0-10.8)
[2017-01-01 20:51] LABS: BASOPHIL 0.6 % (0-2.0); EOSINOPHIL 1.4 % (0-4.5); MEAN PLT VOLUME 8.2 fl (7.5-11.1); NEUTROPHILS 74.8 % (42.8-82.8)
[2017-01-01 20:53] LABS: PLATELET ESTIMATE ADEQUATE (NORMAL)
[2017-01-01] MEDS: LEVOFLOXACIN 500 MG IVPB 100 ML IVPB SCH (21:48)
[2017-01-01] MEDS: ACETAMINOPHEN 325 MG TABLET (FP) PO PRN (21:48)
[2017-01-02 08:31] LABS: ALBUMIN 3.6 g/dl (3.5-5.0); ALK PHOS 109 U/L (32-92); ANION GAP 10 (8-16); CALCIUM 9.2 mg/dl (8.4-10.2); CO2 24 mmol/L (22-28); CREATININE 0.6 mg/dl (0.6-1.3); GLUCOSE,RANDOM 101 mg/dl (74-106); SGOT/AST 27 U/L (10-42); SGPT/ALT 41 U/L (10-40); TOT PROT 6.7 g/dl (6.4-8.3)
[2017-01-02 08:44] LABS: MCH 31.3 pg (25.7-33.7); MCHC 33.8 g/dl (32.0-36.0); MEAN CELL VOLUME 92.3 fl (80-96); MEAN PLT VOLUME 7.9 fl (7.5-11.1); RDW 13.3 % (11.6-15.6); WHITE BLOOD COUNT 6.6 K/mm3 (4.0-10.8)
--- NOTE | 2017-01-02 09:04 | PN ---
Progress Note (short form) - Note Progress Note: ID Consult dictated
--- NOTE | 2017-01-02 09:10 | PN ---
Progress Note, Physician Chief Complaint: Right breast cellulitis S/P Bilateral mastectomies implant and alloderm reconstruction for Right breast cancer S/P chemotherapy History of Present Illness: Patient is eating, Dr Fox currently in consult with patient, no pain, no chills, afebrile today, , minimal drainage reported, WBC 6.6, currently on cipro and vanco IV for right breast cellulitis improving., Dr Ventura is taking patient to OR tomorrow to excised area to prepare her for radiation. Blood cultures pending and breast culture was done in Dr Ventura office prior to admission. - Current Medication List Current Medications: Active Medications Acetaminophen (Tylenol -) 650 mg PO Q4H PRN PRN Reason: FEVER OR PAIN Last Admin: 01/01/17 21:48 Dose: 650 mg Dextrose/Sodium Chloride (D5-1/2ns -) 1,000 mls @ 10 mls/hr IV ASDIR BETHANY Last Admin: 01/01/17 21:49 Dose: 10 mls/hr Levofloxacin (Levaquin 500 Mg Premixed Ivpb -) 100 mls @ 100 mls/hr IVPB DAILY COUNTS INCLUDE 234 BEDS AT THE [facility] Last Admin: 01/01/17 21:48 Dose: 100 mls/hr Vancomycin HCl 1,250 mg/ (Dextrose) 250 mls @ 166.667 mls/hr IVPB Q12H BETHANY Oxycodone/Acetaminophen (Percocet 5/325 -) 1 combo PO Q4H PRN PRN Reason: PAIN LEVEL 1-5 - Objective Vital Signs: Vital Signs Temperature 98.6 F 01/02/17 06:14 Pulse Rate 87 01/02/17 06:14 Respiratory Rate 17 01/02/17 06:14 Blood Pressure 103/49 01/02/17 06:14 O2 Sat by Pulse Oximetry (%) 99 01/01/17 22:35 Constitutional: Yes: Well Nourished, No Distress Breast(s): Yes: Other (Left breast healed well incision no erythema, Right breast imframamary fols small area of erythema very minimal discharge no purulence and small area of eschar) Labs: CBC, BMP 01/02/17 07:44 01/02/17 07:44 Problem List - Problems (1) Cellulitis of right breast Code(s): N61.0 - MASTITIS WITHOUT ABSCESS Assessment/Plan continue IV Vanco and cipro per ID NPO after midnight for excision of right imframamary eschar to prepare for RT blood culture and breast culture(Dr Ventura office) pending dressing changes daily
[2017-01-02] MEDS ORDERED: REFRIGERATED ANITBIOTICS ONE ×2 (09:42→11:36)
[2017-01-02] MEDS: LEVOFLOXACIN 500 MG IVPB 100 ML IVPB SCH (09:44)
[2017-01-02] MEDS: VANCOMYCIN 1,250 MG in DEXTROSE 5%-WATER - 250 ML IVPB SCH ×2 (12:00→21:23)
[2017-01-02 12:18] LABS: PLATELET COUNT 133 K/MM3 (134-434)
[2017-01-02] MEDS ORDERED: PT OWN MED DRAWER 7, Y5N ONE (21:21)
[2017-01-03] MEDS: LEVOFLOXACIN 500 MG IVPB 100 ML IVPB SCH (09:28)
[2017-01-03] MEDS: VANCOMYCIN 1,250 MG in DEXTROSE 5%-WATER - 250 ML IVPB SCH ×2 (09:28→22:03)
--- NOTE | 2017-01-03 10:49 | PN ---
Progress Note, Physician History of Present Illness: Awake,alert No c/o breast pain No fever/ chills Tolerating antibiotics - Current Medication List Current Medications: Active Medications Acetaminophen (Tylenol -) 650 mg PO Q4H PRN PRN Reason: FEVER OR PAIN Last Admin: 01/01/17 21:48 Dose: 650 mg Dextrose/Sodium Chloride (D5-1/2ns -) 1,000 mls @ 10 mls/hr IV ASDIR [facility] Last Admin: 01/01/17 21:49 Dose: 10 mls/hr Levofloxacin (Levaquin 500 Mg Premixed Ivpb -) 100 mls @ 100 mls/hr IVPB DAILY [facility] Last Admin: 01/03/17 09:28 Dose: 100 mls/hr Vancomycin HCl 1,250 mg/ (Dextrose) 250 mls @ 166.667 mls/hr IVPB Q12H [facility] Last Admin: 01/03/17 09:28 Dose: 166.667 mls/hr Oxycodone/Acetaminophen (Percocet 5/325 -) 1 combo PO Q4H PRN PRN Reason: PAIN LEVEL 1-5 - Objective Vital Signs: Vital Signs Temperature 98.3 F 01/03/17 06:25 Pulse Rate 91 H 01/03/17 06:25 Respiratory Rate 18 01/03/17 06:25 Blood Pressure 114/59 01/03/17 06:25 O2 Sat by Pulse Oximetry (%) 100 01/03/17 07:43 Constitutional: Yes: No Distress Eyes: Yes: Conjunctiva Clear Cardiovascular: Yes: Regular Rate and Rhythm, S1, S2 Respiratory: Yes: CTA Bilaterally Gastrointestinal: Yes: Normal Bowel Sounds, Soft. No: Tenderness Breast(s): Yes: Other (+ dry eschars below R breast with surrounding erythema scant drainage on dressing) Edema: No Labs: CBC, BMP 01/02/17 07:44 01/02/17 07:44 Assessment/Plan Cellulitis R breast S/P bilateral mastectomy/implant reconstruction For debridement in OR today Continue empiric vancomyin/ levaquin
--- NOTE | 2017-01-03 11:11 | CONS ---
INFECTIOUS DISEASE CONSULTATION DATE OF CONSULTATION: DATE OF DICTATION: 01/03/2017 HISTORY OF PRESENT ILLNESS: The patient is a 51-year-old female who was evaluated for cellulitis of the right breast. The patient was diagnosed with breast cancer in June 2016 after being found to have an abnormal mammogram. A biopsy was performed in June and was positive. She was also found to have positive nodes. She was diagnosed with HER-2 positive, estrogen receptor and progesterone receptor positive breast cancer. She underwent neoadjuvant chemotherapy consisting of Taxotere, Cytoxan, and Herceptin. The patient subsequently underwent bilateral total mastectomy with implant reconstruction. She did well until approximately 1 week ago. She developed some redness on the inferior aspect of the right breast. She was placed on oral antibiotics with some improvement. However, she did note increasing drainage and low-grade temperature. She was admitted to the hospital for further evaluation. She is now scheduled to have debridement and possible washout of the right breast implant. At the present time she is awake and alert. She has no complaints of fever. She was empirically treated with vancomycin and Levaquin. PAST MEDICAL HISTORY: As above. ALLERGIES: SULFA. MEDICATIONS: 1. Cefadroxil. 2. Oxycodone. 3. Zyrtec. 4. Yohana. SOCIAL HISTORY: Former smoker. SYSTEMS REVIEW: Neurologic: No loss of consciousness, seizure activity, or focal weakness. Cardiac: Negative chest pain or palpitations. Respiratory: Negative cough or sputum production. Gastrointestinal: Negative vomiting or diarrhea. Genitourinary: Negative for urinary tract infection. LABORATORY DATA: White count of 8.9, hematocrit of 36.1, and platelet count of 177. Blood cultures are pending. PHYSICAL EXAMINATION: General Appearance: The patient is awake and alert. She is not acutely toxic appearing. Vital Signs: Temperature of 98.6, blood pressure of 103/49, pulse of 87 and regular, and respirations of 17 per minute. HEENT: Sclerae are anicteric. Cardiovascular: Heart sounds S1, S2. Lungs: Clear. Breasts: Examination of the right breast there are 2 superficial eschars present in the skin fold beneath the right breast with fibrinous base and some surrounding erythema. There is no expressible pus. Abdomen: Soft. No tenderness elicited. No mass, rebound, or rigidity. Extremities: Negative for edema. IMPRESSION: 1. Right breast cellulitis. 2. Breast cancer status post neoadjuvant chemotherapy and bilateral total mastectomy with implant reconstruction. PLAN: Await culture results. Surgical evaluation for debridement. Empiric antibiotic coverage with vancomycin and Levaquin pending cultures. Local wound care. Will follow. Thank you for the kind referral. YODIT CLANCY M.D. DAYNE/[id number]
[2017-01-03] MEDS ORDERED: PROPOFOL 20 ML ONE ×3 (14:19)
[2017-01-03] MEDS ORDERED: ONDANSETRON 4 MG/2 ML VIAL IVPUSH PRN (15:19)
[2017-01-03] MEDS ORDERED: LACTATED RINGERS SOLUTION 1,000 ML IV SCH (15:30)
--- NOTE | 2017-01-03 15:45 | OP ---
Operative Note - Note: Operative Date: 01/03/17 Pre-Operative Diagnosis: Right breast reconstruction wound Operation: Right breast wound debridement and closure Post-Operative Diagnosis: Same as Pre-op Anesthesia: MAC Specimens Removed: right breast debrided skin Estimated Blood Loss (mls): 10 Drains & Tubes with Location: right breast 15 thai Operative Report Dictated: Yes
[2017-01-03] MEDS ORDERED: REFRIGERATED ANITBIOTICS ONE (21:09)
[2017-01-03] MEDS: ACETAMINOPHEN 325 MG TABLET (FP) PO PRN (22:08)
[2017-01-04] MEDS: LEVOFLOXACIN 500 MG IVPB 100 ML IVPB SCH (09:36)
[2017-01-04 11:43] LABS: ANION GAP 10 (8-16); CO2 27 mmol/L (22-28); CREATININE 0.6 mg/dl (0.6-1.3); GLUCOSE,RANDOM 134 mg/dl (74-106)
[2017-01-04] MEDS: VANCOMYCIN 1,250 MG in DEXTROSE 5%-WATER - 250 ML IVPB SCH (11:43)
[2017-01-04 14:34] VITALS: BP 152/64; PULSE 96; TEMP 98.5
--- NOTE | 2017-01-04 22:07 | OP ---
DATE OF OPERATION: 01/04/2017 SURGEON: Chris Ventura MD BUMPER STRAIGHTENER SURGEON: Gardenia Mercado PA-C PREOPERATIVE DIAGNOSES: 1. Right chest wall cellulitis and exposure of underlying reconstructive tissue. 2. Ischemia with necrosis, right breast. POSTOPERATIVE DIAGNOSES: 1. Right chest wall cellulitis and exposure of underlying reconstructive tissue. 2. Ischemia with necrosis, right breast. OPERATIVE PROCEDURE: 1. Debridement of right chest wall necrosis. 2. Advancement flap closure of right breast wound with reconstruction. OPERATIVE INDICATION: The patient is a young woman who underwent bilateral mastectomy and reconstruction approximately 3 weeks prior to this admission but presented urgently to the outpatient area in the office of Dr. Valentine and myself with ischemic necrosis of the skin of the right chest wall after reconstruction. The patient has been treated temporarily but then admitted to the hospital on an urgent basis with cellulitis and exposure of the underlying reconstructive device. She was brought to the operating room on an urgent basis after 24 hours of antibiotics in the hospital for debridement and definitive closure. PROCEDURE IN DETAIL: The patient was taken to the operating room and after induction of monitored anesthesia care, the right breast ischemic necrosis of the skin was visualized. The medial and lateral position of the mastectomy scar showed eschar and exposure of the underlying reconstructive procedure. After 1% local lidocaine anesthesia with 1:100,000 epinephrine was injected into the area, a large portion of the inframammary scar and skin and subcutaneous tissue was excised. This tissue was sent for pathologic diagnosis. The dissection was then carried down to the undergo reconstructive implant and a cellular dermal matrix which had been placed. Fibrinous material had been over the area and some areas of fat necrosis were also seen from ischemia. Sharp debridement with the scalpel and curved sharp scissor was carried out down to the reconstructive implant. The dermis appeared to be intact over the implant and copious irrigation with pulsing was carried out. At this point, undermining was accomplished in the lower chest wall and abdominal region. An advancement flap was created from superior and inferior based tissue and brought together. After copious irrigation, a 15 Calin drain was brought out through a separate stab wound laterally and then tissue was advanced and closed upon itself using 2-0 PDS suture on the deeper tissue, over the implant 3-0 in a deep dermal fashion and 5-0 vertical mattress sutures were placed independently in an interrupted fashion along the incision itself. Good contour and closure was seen at this point. No ischemia was noted in the tissues themselves. The wound was dressed with Steri-Strips, a light fluff dressing and Surgi-Bra. She tolerated the procedure well. She went to the recovery room in satisfactory condition. CHRIS VENTURA M.D. TESSY/[id number]
--- NOTE | 2017-01-07 15:00 | PATH ---
Surgical Pathology Report Patient Name: KRISTIAN CONNELLY Med. Rec. #: [id number] /Age/Gender: 1965 (Age: 51) / F Account: [id number] Location: [facility] Taken: 01/03/2017 Received: 01/06/2017 Reported: 01/07/2017 Physicians: Sean Valentine M.D. Specimen(s) Received RIGHT BREAST DEBRIDED TISSUE Clinical History Cellulitis right breast Final Diagnosis SKIN AND SOFT TISSUE, RIGHT BREAST, DEBRIDEMENT: SKIN WITH ULCERATION, ACUTE AND CHRONIC INFLAMMATION, AND GANGRENOUS NECROSIS. ADIPOSE TISSUE WITH AREAS OF FAT NECROSIS AND FIBROSIS. NO CARCINOMA IDENTIFIED. Electronically Signed Alireza Ba M.D. Gross Description Received in formalin labeled "right breast debrided tissue," is a 6.0 x 4.6 x 2.3 cm aggregate of necrotic skin and soft tissue fragments. Shingle Catcher sections are submitted in one cassette. /01/06/2017 saudi01/06/2017
== END 2017-01-04 15:37 | disposition home or self-care (01) | DRG 902 ==
LOC: FM/S 16:55
PROVIDERS: ADMIT Surgery Surgical Oncology; ATTEND Surgery Surgical Oncology
PROC: 0HWT0JZ Revision of Synthetic Substitute in Right Breast, Open Approach (ICD-10-PCS; principal; 2017-01-04)
PROC: 0JB60ZZ Excision of Chest Subcutaneous Tissue and Fascia, Open Approach (ICD-10-PCS; 2017-01-04)
DX: T85.79XA Infection and inflammatory reaction due to other internal prosthetic devices, implants and grafts, initial encounter (principal); L03.313 Cellulitis of chest wall; N61.0 Mastitis without abscess; Y83.9 Surgical procedure, unspecified as the cause of abnormal reaction of the patient, or of later complication, without mention of misadventure at the time of the procedure
CPT/HCPCS: 36415; 80048; 80053; 85025; 85027; 87040; 88304-TC; 94760; G0480

== ENCOUNTER 2018-04-24 11:10 | Day surgery (SDC) | payer OTHER ==
[2018-04-23 15:20] VITALS: BMI 32.0
[2018-04-24] MEDS ORDERED: EPINEPHrine/PF 1 MG/1 ML (1:1,000) AMPULE ONE (13:32)
[2018-04-24] MEDS ORDERED: LIDOCAINE HCL 1%, 10 MG/ML (20ML VIAL) ONE (13:32)
[2018-04-24] MEDS ORDERED: MIDAZOLAM HCL 2 MG/2 ML SINGLE DOSE VIAL ONE (13:37)
--- NOTE | 2018-04-24 13:45 | OP ---
Operative Note - Note: Operative Date: 04/24/18 Pre-Operative Diagnosis: post mastectomy. acquired chest wall deformity Operation: Reconstruction bilateral with other technique. Revsion of breasts bilaterally Post-Operative Diagnosis: Same as Pre-op Surgeon: rBo Ventura Anesthesia: General Specimens Removed: left and right breast tissue Estimated Blood Loss (mls): 25 Operative Report Dictated: Yes
[2018-04-24] MEDS ORDERED: ceFAZolin SODIUM 1 GM VIAL IVPB ONE ×2 (13:59→14:13)
[2018-04-24] MEDS ORDERED: PROPOFOL 20 ML ONE (14:00)
[2018-04-24] MEDS ORDERED: LIDOCAINE HCL/PF 2% SDV 5ML VIAL ONE (14:00)
[2018-04-24] MEDS ORDERED: DEXAMETHASONE SOD PHOSPHATE 4 MG/1 ML VIAL ONE (14:00)
[2018-04-24] MEDS ORDERED: ceFAZolin SODIUM 1 GM VIAL ONE ×2 (14:00→14:44)
[2018-04-24] MEDS ORDERED: LIDOCAINE 1%/EPI 1:100000 (20 ML MULTI DOSE VIAL) ONE (14:26)
[2018-04-24] MEDS ORDERED: LIDOCAINE 1%/EPI 1:100000 (50 ML MULTI DOSE VIAL) INF ONE (14:32)
[2018-04-24] MEDS ORDERED: GENTAMICIN SO4 80 MG/2 ML VIAL ONE (14:44)
[2018-04-24] MEDS ORDERED: ACETAMINOPHEN INJECTION 100 ML IVPB ONE (14:45)
--- NOTE | 2018-04-24 16:22 | SURG ---
Surgery [employer] Installer Note [employer] Products Installer: Buck Gracia PA-C Date of Service: 04/24/18 Diagnosis: History of Right breast cancer, post mastectomy, acquired chest wall deformity Procedure: Reconstruction bilateral with other technique. Revision of breasts bilaterally I was present for the entirety of the operative procedure. For further detail, please refer to operative report.
[2018-04-24] MEDS ORDERED: ONDANSETRON 4 MG/2 ML VIAL IVPUSH PRN (16:42)
[2018-04-24] MEDS ORDERED: oxyCODONE HCL 5 MG TABLET PO PRN (16:42)
[2018-04-24] MEDS ORDERED: LACTATED RINGERS SOLUTION 1,000 ML IV SCH (16:45)
[2018-04-24] MEDS ORDERED: ONDANSETRON 4 MG/2 ML VIAL ONE (16:50)
[2018-04-24 20:25] VITALS: BP 126/85; PULSE 113; TEMP 98.1
--- NOTE | 2018-04-25 13:34 | OP ---
DATE OF OPERATION: 04/24/2018 SURGEON: Chris Ventura MD ELEMENTARY PRINCIPAL SURGEON: Buck Gracia PA-C PREOPERATIVE DIAGNOSES: 1. Bilateral acquired chest wall deformity status post bilateral mastectomy. 2. Personal history of breast carcinoma. 3. Prior chemotherapy and radiation therapy, right breast. 4. Gross asymmetry and mechanical complication of breast implants. POSTOPERATIVE DIAGNOSES: 1. Bilateral acquired chest wall deformity status post bilateral mastectomy. 2. Personal history of breast carcinoma. 3. Prior chemotherapy and radiation therapy, right breast. 4. Gross asymmetry and mechanical complication of breast implants. OPERATIVE PROCEDURE: 1. Right breast reconstruction utilizing other technique. 2. Left breast reconstruction utilizing other technique. 3. Capsulotomy, removal and replacement of left breast implant. 4. Excision of breast tissue, right breast. 5. Excision of tissue, left breast. OPERATIVE INDICATIONS: Patient is a young woman of 52 years old who underwent bilateral mastectomy for breast cancer and presents with the above deformities. She underwent previous radiation and chemotherapy and now returns for malposition asymmetry and gross asymmetry of the reconstructed chest wall. The risks and benefits, surgical versus nonsurgical alternatives as well as material complications of the procedure were described on multiple occasions preoperatively including today in the holding area where she was marked for the procedure with the incisions and outline of the procedure described in great detail with she and her in attendance. OPERATIVE PROCEDURE IN DETAIL: Patient was taken to the operating room and after induction of general anesthesia in the supine position both arms were extended and padded. Venodyne boots were placed. No intervention on the right arm was taken into account because of the previous history of lymphedema and all the intervention, IV and blood pressure cuff were on the left. At this point after prepping and draping with ChloraPrep solution over the entire extent of the abdomen and chest wall in the usual fashion sterile drapes were placed in the usual fashion and timeout was called. After timeout 1% local lidocaine anesthesia with 1:100,000 epinephrine was injected along the mastectomy scar on the right and left breasts and the long linear scar on the lower portion of the left breast. Also the abdominal wall was injected from previous hysterectomy into the areas for harvest of reconstructive tissue. At this point attention was turned to the right breast. An incision was made through skin to the subcutaneous tissue, through the subcutaneous tissue down to the underlying chest wall. A block of tissue was removed from the lateral portion of the right breast and sent for pathologic diagnosis. Attention was then turned back to the left breast. A large block of tissue was excised in the lower portion of the left breast because of size discrepancy and significantly larger volume on the left breast especially after radiation therapy to the right. This large block of tissue including skin, subcutaneous tissue and capsule was removed and sent for pathologic diagnosis to rule out breast cancer. The implant was then removed from the left chest wall being 520-mL volume and because of the discrepancy in size and shape because of previous radiation a new implant was chosen. The pocket itself was opened medially using a capsulotomy by incising the capsule on the lower portion of the chest wall down through the skin to the subcutaneous tissue down through to the muscle. Once this was accomplished hemostasis was meticulously obtained throughout the pocket. The pocket was copiously irrigated with triple-antibiotic solution and then a new implant of [facility] [employer] SoftTouch breast implant style SSF, 450 mL, was placed into the left breast pocket. A capsulorrhaphy was then performed using 0 V-Loc suture in a running fashion closing the capsule from superior laterally around inferiorly to the inferior portion of the reconstructed breast down across the lower pole of the breast to the medial side. Tissue was then again removed from the medial and lateral side to contour the breast to match the opposite side. At this point before permanent closure an incision was made down through the skin to the subcutaneous tissue of the abdominal wall, carried down to the underlying fascia and then tissue was harvested from just above the fascia on the rectus and lateral oblique muscles from the lower abdominal area as well as the upper fascia. This tissue was transferred to the back table, washed, cleansed and prepared for reconstruction. The sutures were placed in the right breast using 3-0 and 4-0 Biosyn suture in deep fashion on the repair for the right breast and subcutaneous sutures were placed in the skin on the right side. The left side required more extensive closure with a 0 V-Loc suture in 2-layered fashion both on the capsule and the deep tissue to approximate the skin edges. At this point tissue was transferred to the right breast on the superior, medial, central, lateral and inferior portions in all areas of the right breast because of the previous radiation and capsular contracture. This tissue was placed into this area for reconstructive purposes. Tissue was also placed into the medial, inferior and central portions of the left breast for reconstruction. The skin and subcutaneous tissue on the left breast was then closed using running 3-0 V-Loc suture subcuticularly to close the breast and Dermabond and Steri-Strips were placed over the wounds. Multiple interrupted sutures were also closed using 2-layered closure suture with 3-0 Biosyn and 5-0 plain catgut in the skin. Steri-Strips and Dermabond were placed over all wounds. Compressive dressing with a Surgi-Bra was placed on the breast and an abdominal binder over the abdominal wall. Good shape and contour were seen in the sitting position after the operation. Patient tolerated her procedure well. She was transferred to the recovery room after removing the tube in the usual fashion. CHRIS VENTURA M.D. TESSY/[id number]
--- NOTE | 2018-04-28 11:56 | PATH ---
Surgical Pathology Report Patient Name: KRISTIAN CONNELLY Med. Rec. #: [id number] /Age/Gender: 1965 (Age: 52) / F Account: [id number] Location: [facility] Taken: 04/24/2018 Received: 04/27/2018 Reported: 04/28/2018 Physicians: Bro Ventura Specimen(s) Received A: LEFT BREAST IMPLANT B: RIGHT BREAST TISSUE C: LEFT BREAST TISSUE Clinical History Breast tissue Final Diagnosis A. BREAST IMPLANT, LEFT, REMOVAL: BREAST IMPLANT. MACROSCOPIC DIAGNOSIS. B. BREAST TISSUE, RIGHT, EXCISION: BENIGN FIBROADIPOSE TISSUE WITHOUT SIGNIFICANT PATHOLOGIC FINDINGS. SKIN WITHOUT SIGNIFICANT PATHOLOGIC FINDINGS. C. BREAST TISSUE, LEFT, EXCISION: BENIGN BREAST TISSUE AND FIBROUS CAPSULE. SKIN WITHOUT SIGNIFICANT PATHOLOGIC FINDINGS. Electronically Signed Amelia Ruiz M.D. Gross Description A. Received fresh labeled "left breast implant," is a clear, rubbery, intact breast implant averaging 14 cm in diameter and 4.5 cm in depth. No soft tissue is present. No sections are submitted, gross only. B. Received in formalin labeled "right breast tissue" are multiple irregular fragments of skin and fibroadipose tissue weighing 31 g and measuring 7 x 6 x 1.5 cm in aggregate. Cut section is unremarkable. No lesions are identified. Golf Course Superintendent sections are submitted in one cassette. C. Received in formalin labeled "left breast tissue" are multiple irregular fragments of skin, fibrous tissue and fibroadipose tissue weighing 172 g and measuring 10 x 10 x 7 cm in aggregate. Cut section is unremarkable. No lesions are identified. Golf Course Superintendent sections are submitted in one cassette. MLSZ/04/27/2018 sanml/04/27/2018
== END 2018-04-24 19:40 | disposition home or self-care (01) ==
LOC: JASU-SURG 11:10
PROVIDERS: ATTEND Plastic Surgery
PROC: 0HNU0ZZ Release Left Breast, Open Approach (ICD-10-PCS; 2018-04-24)
PROC: 0HRU0JZ Replacement of Left Breast with Synthetic Substitute, Open Approach (ICD-10-PCS; 2018-04-24)
PROC: 0HPU0JZ Removal of Synthetic Substitute from Left Breast, Open Approach (ICD-10-PCS; 2018-04-24)
PROC: 0HUU0JZ Supplement Left Breast with Synthetic Substitute, Open Approach (ICD-10-PCS; 2018-04-24)
PROC: 0HRV07Z Replacement of Bilateral Breast with Autologous Tissue Substitute, Open Approach (ICD-10-PCS; principal; 2018-04-24 14:32)
DX: M95.4 Acquired deformity of chest and rib (principal); B85.3 Phthiriasis; Z90.13 Acquired absence of bilateral breasts and nipples; Z92.21 Personal history of antineoplastic chemotherapy; Z92.3 Personal history of irradiation; N65.1 Disproportion of reconstructed breast; T85.41XA Breakdown (mechanical) of breast prosthesis and implant, initial encounter; Y83.8 Other surgical procedures as the cause of abnormal reaction of the patient, or of later complication, without mention of misadventure at the time of the procedure; Y92.89 Other specified places as the place of occurrence of the external cause
CPT/HCPCS: 88300-TC; 88305-TC; 94760; J0131